=== PATIENT | male | born 1955 | race Caucasian/White ===

== ENCOUNTER 2022-10-13 20:17 | Emergency (ER) | payer MEDICARE, OTHER ==
[2022-10-13 20:36] VITALS: BP 179/84; PULSE 72
[2022-10-13] MEDS ORDERED: Sodium Chloride 0.9% 1,000 ML IV SCH (22:00)
[2022-10-14] MEDS ORDERED: Levofloxacin 500 MG Tab PO ONE (00:30)
== END 2022-10-14 00:45 | disposition home or self-care (01) ==
LOC: JD.ED 20:17
DX: N39.0 Urinary tract infection, site not specified (principal); I10 Essential (primary) hypertension; M19.90 Unspecified osteoarthritis, unspecified site; Z79.82 Long term (current) use of aspirin; Z79.899 Other long term (current) drug therapy
CPT/HCPCS: 36415; 74022; 74176; 80053; 81001; 85027; 96360; 96361; 99284; A9270; J7030; 99283